=== PATIENT | male | born 1950 | race Caucasian/White ===

== ENCOUNTER 2018-10-31 08:21 | Day surgery (SDC) | payer OTHER ==
[~2018-10-31] VITALS: Ht 177.8 cm; Wt 92.1 kg
[~2018-10-31 08:21] MED LIST: ALEVE220 MG PO; ATEN25 PO; Advil200 M1 PO; ENOX40I SC; HYDCHL12.5 PO; HYDMOR2 PO; Humira20 MG/0.4; LOSA25 PO; MELO7.5 PO; METO50 PO; METTREX2.5 PO; Mobic15 MG PO; OMEP20ER PO; TAMS.4ER PO
--- NOTE | 2018-10-31 09:07 | NUR ---
PT ADMITTED TO [facility]. AGREES WITH PLANNED SURGERY. MEDS, ALLERGIES AND HX REVIEWED. LUNG SOUNDS CLEAR.
--- NOTE | 2018-10-31 11:13 | NUR ---
PT TO STEP/ DRESSING D/I. DENIES PAIN AT PRESENT.
--- NOTE | 2018-10-31 11:23 | NUR ---
REPORT TO MARCELO OJEDA RN.
--- NOTE | 2018-10-31 12:04 | NUR ---
Patient up to Ambulate independently. Gait steady. Discharge instructions reviewed with patient. Patient verbalizes understanding. Copy given to patient to take home. Dressing to procedure site clean, dry, intact with no visible drainage, swelling, erythema or bruising noted. Patient States Post-Procedure ride home has been arranged. Discharged via wheelchair to private car for ride home. Partner at bedside during discharge instructions and is providing ride home.
== END 2018-10-31 22:46 | disposition home or self-care (01) ==
LOC: ORSCMMR 08:21 → ORD 09:45 → ORSCMMR 09:45
PROVIDERS: Surgery
PROC: 0YU50JZ Supplement Right Inguinal Region with Synthetic Substitute, Open Approach (ICD-10-PCS; principal; 2018-10-31 09:45)
DX: K40.90 Unilateral inguinal hernia, without obstruction or gangrene, not specified as recurrent (principal); I10 Essential (primary) hypertension; Z87.891 Personal history of nicotine dependence; E78.5 Hyperlipidemia, unspecified; G47.33 Obstructive sleep apnea (adult) (pediatric); E88.81 Metabolic syndrome and other insulin resistance
CPT/HCPCS: C1781; J0690; J1100; J1885; J2370; J2405; J3010; J7120

== ENCOUNTER 2019-11-21 18:05 | Inpatient (IN) | payer OTHER ==
[~2019-11-21] VITALS: Ht 177.8 cm; Wt 88.9 kg
[2019-11-21 18:41] LABS: BASOPHILS ABSOLUTE AUTO 0.05 K/mm3 (0.00-0.23); BASOPHILS PERCENT AUTO 1 % (0-2); EOSINOPHILS ABSOLUTE AUTO 0.04 K/mm3 (0.00-0.68); EOSINOPHILS PERCENT AUTO 0 % (0-6); Hematocrit 37.6 % (37.0-53.0); Hemoglobin 12.2 g/dL (13.5-17.5); IMMATURE GRAN ABSOLUTE AUTO 0.03 K/mm3 (0.00-0.10); IMMATURE GRAN PERCENT AUTO 0 % (0-1); LYMPHOCYTES ABSOLUTE AUTO 1.16 K/mm3 (0.84-5.20); LYMPHOCYTES PERCENT AUTO 11 % (21-46); MONOCYTES PERCENT AUTO 10 % (4-13); Mean Corpuscular HGB Conc 32.4 g/dL (31.5-36.5); Mean Corpuscular Volume 93 fL (80-100); Mean Platelet Volume 9.6 fL (9.1-12.4); NEUTROPHILS ABSOLUTE AUTO 7.89 K/mm3 (1.96-9.15); NEUTROPHILS PERCENT AUTO 78 % (41-73); Platelet Count 337 K/mm3 (150-400); RDW Coefficient Variation 13.5 % (11.7-14.2); RDW Standard Deviation 45.9 fL (35.1-46.3); Red Blood Cell Count 4.06 M/mm3 (4.30-5.90); White Blood Cell Count 10.17 K/mm3 (4.00-11.30)
[2019-11-21 18:57] LABS: Prothrombin Time Results 10.7 Sec (9.7-11.5)
[2019-11-21 19:17] LABS: Magnesium, Blood 2.1 mg/dL (1.6-2.4)
[2019-11-21 19:31] LABS: Alanine Aminotransfer (ALT/SGP 32 U/L (12-78); Albumin, Blood 2.8 g/dL (3.4-5.0); Albumin/Globulin Ratio 0.6 (0.8-1.8); Alk Phos 66 U/L (50-136); Anion Gap 3 mmol/L (6-16); Aspartate Aminotrans (AST/SGOT 27 U/L (12-37); Bilirubin, Total 0.5 mg/dL (0.1-1.0); Blood Urea Nitrogen 10 mg/dL (8-24); Bun/Creatinine Ratio 12.3 (12.0-20.0); CO2, Blood 28 mmol/L (21-32); Calcium, Blood 9.3 mg/dL (8.5-10.1); Chloride, Blood 104 mmol/L (98-108); Creatinine, Blood 0.81 mg/dL (0.60-1.20); Globulin, Blood 4.6 g/dL (2.2-4.0); Glomerular Filtration Rate >60 (60-); Glucose, Blood 109 mg/dL (70-99); Potassium, Blood 3.9 mmol/L (3.5-5.5); Sodium, Blood 135 mmol/L (136-145); Total Protein, Blood 7.4 g/dL (6.4-8.2)
--- NOTE | 2019-11-21 23:33 | NUR ---
ASSUMED PT CARE FROM EXPENSE CLERK AT 2139 PT ALERT AND ORIENTED X4. ABLE TO MAKE HIS NEEDS KNOWN. DENIES ANY CHEST PAIN; HOWEVER, STILL C/O NO VISION TO LEFT MENDEZ BILATERALLY. BILATERAL EQUAL AGRICULTURE INSPECTOR TO BOTH UPPER AND LOWER EXTREMITIES. NO FACIAL DROOP OR SLURRED SPEECH NOTED. PT HAS TR BAND TO RIGHT RADIAL SITE S/P STENTING TO LAD. SITE IS SOFT, NON-TENDER WITH NO OOZING OR HEMATOMA NOTED; RIGHT RADIAL PULSE IS STRONG. VSS; SEE FLOW SHEET. DR. TAYLOR AT BEDSIDE AT 2229 TO DISCUSS WITH PT THE NEED FOR A CABG WITHIN THE NEXT 6 MONTHS IN WHICH HIS PROSTATE REMOVAL SURGERY WOULD MOST LIKELY BE POSTPONED. PT APPEARED DISCOURAGED BY THE NEWS AND MADE STATEMENTS LIKE, "IF ITS NOT ONE THING ITS ANOTHER." PT VERY UNDERSTANDING OF RISK VS BENEFIT REGARDING NEEDING THE CABG BEFORE THE PROSTATE REMOVAL; HOWEVER, HE STILL FEELS DEFEATED. PT CURRENTLY HAS NS INFUSING AT 200MLS/HR. PER DR. TAYLOR WE ARE TO DISCONTINUE THE HEPARIN GTT PT HAS BEEN CHANGED TO SUBCUTANEOUS INJECTIONS TID. CALL LIGHT WITHIN REACH; PT ABLE TO MAKE HIS NEEDS KNOWN. WILL CHECK ON FREQUENTLY D/T RECENT VISION CHANGES.
[2019-11-22 03:26] LABS: BASOPHILS ABSOLUTE AUTO 0.03 K/mm3 (0.00-0.23); BASOPHILS PERCENT AUTO 0 % (0-2); EOSINOPHILS ABSOLUTE AUTO 0.11 K/mm3 (0.00-0.68); EOSINOPHILS PERCENT AUTO 1 % (0-6); Hematocrit 35.2 % (37.0-53.0); Hemoglobin 11.5 g/dL (13.5-17.5); IMMATURE GRAN ABSOLUTE AUTO 0.03 K/mm3 (0.00-0.10); IMMATURE GRAN PERCENT AUTO 0 % (0-1); LYMPHOCYTES ABSOLUTE AUTO 1.28 K/mm3 (0.84-5.20); LYMPHOCYTES PERCENT AUTO 15 % (21-46); MONOCYTES ABSOLUTE AUTO 0.76 K/mm3 (0.16-1.47); MONOCYTES PERCENT AUTO 9 % (4-13); Mean Corpuscular HGB 30.1 pg (26.0-34.0); Mean Corpuscular HGB Conc 32.7 g/dL (31.5-36.5); Mean Corpuscular Volume 92 fL (80-100); Mean Platelet Volume 9.6 fL (9.1-12.4); NEUTROPHILS ABSOLUTE AUTO 6.35 K/mm3 (1.96-9.15); NEUTROPHILS PERCENT AUTO 74 % (41-73); Platelet Count 322 K/mm3 (150-400); RDW Coefficient Variation 13.5 % (11.7-14.2); RDW Standard Deviation 46.2 fL (35.1-46.3); Red Blood Cell Count 3.82 M/mm3 (4.30-5.90); White Blood Cell Count 8.56 K/mm3 (4.00-11.30)
[2019-11-22 03:49] LABS: Anion Gap 6 mmol/L (6-16); Blood Urea Nitrogen 9 mg/dL (8-24); Bun/Creatinine Ratio 10.6 (12.0-20.0); CO2, Blood 26 mmol/L (21-32); Calcium, Blood 8.4 mg/dL (8.5-10.1); Chloride, Blood 105 mmol/L (98-108); Creatinine, Blood 0.85 mg/dL (0.60-1.20); Glomerular Filtration Rate >60 (60-); Glucose, Blood 103 mg/dL (70-99); Potassium, Blood 3.6 mmol/L (3.5-5.5); Sodium, Blood 137 mmol/L (136-145)
--- NOTE | 2019-11-22 05:19 | NUR ---
END OF SHIFT SUMMARY NO SIGNIFICANT CHANGES SINCE LAST ENTRY. TR BAND REMOVED THIS MORNING AT 0500; SITE IS SOFT, NON-TENDER, 1CM HEMATOMA NOTED WITH SCANT AMOUNT OF OOZING. PT DENIES ANY DISCOMFORT. STATES HIS VISION REMAINS UNCHANGED; DEFICITS TO BILATERAL, LEFT VISUAL MENDEZ. DENIED CHEST PAIN. VSS; SEE FLOWSHEET. CALL LIGHT LEFT WITHIN REACH; HOWEVER, DUE TO VISUAL DEFICITS, FREQUENT MONITORING FOR ASSIST IS RECOMMENDED PT HAS A HARD TIME SEEING THE BUTTONS ON THE CALL LIGHT. WILL CONTINUE TO MONITOR UNTIL REPORT IS HANDED OFF TO ONCOMING RN.
--- NOTE | 2019-11-22 08:00 | NUR ---
Receieve report from Kory PAULINO. patient laying supine in bed with HOB slightly elevated and awake. He is able to communicate his needs. He states that his vision very limited to half his vision in each eye to center part with no peripheral aspect. His right TR band site with clear opsite dressing intact and minimal dried blood and no hematoma. He is on RA and sats mid to upper 90%'s. He MAEW. VSS See EMR.
--- NOTE | 2019-11-22 10:00 | NUR ---
Patient doing well, no significant changes in vision of TR Band site. He remains on RA and sats upper 90%. He has some concerns about open heart and his prostate surgery. When getting report from [facility] shift noticed he was in A-Fib RVR and will address with Cardiology. He denies any pain or needs. Tolerated med and breakfast.
--- NOTE | 2019-11-22 11:36 | NUR ---
Dr Holland by and is starting on Metoprolol for A-fib rate, Xarellto for A-Fib, and changed Birlinta to Plavix and 300mg loading dose, PPI Protonix 40 mg daily. No other significant changes. She discussed about taking him back to lab instructor in a month to look at vessels and possiibly another stent to delay open heart and he can to prostate surgery.
--- NOTE | 2019-11-22 14:43 | NUR ---
Dr Holland transferred patient to PCU status and is awaiting room. He has had many friends in and they state he has alot of support at home. VSS see EMR. No neuro or visual changes and patient states he will say something is better or worse. Groin site remains stable.
--- NOTE | 2019-11-22 17:30 | NUR ---
Patient sleeping and has been for several hours, friends and family have left for the day. He remains on RA and sats mid 90%'s. He denies vision better or worse from start of shift. His R TR band site C/D/I. Dr Pruitt's office called with appt. VSS See EMR. MAEW but weak.
--- NOTE | 2019-11-23 03:17 | NUR ---
SHIFT SUMMARY: PATIENT SBP RANGING BETWEEN 80'S AND 90'S AFTER NIGHT MEDICATIONS GIVEN PER MD ORDER. MAP STILL 66 AND ABOVE. THE SBP READINGS IN THE 70'S WERE D/T LOOSENED CUFF AND PATIENT POSITIONING ON HIS SIDE. PATIENT CALM AND COOPERATIVE ALL SHIFT, NEURO REMAINS UNCHANGED FROM BEGINNING OF SHIFT. ALL OTHER VSS, CALL LIGHT WITHIN REACH, BED LOW AND LOCKED, MONITORING CLOSELY.
--- NOTE | 2019-11-23 08:00 | NUR ---
SHORTLY AFTER START OF SHIFT, PT REPORTED 4/10 MID STERNAL CHEST PAIN. PT WAS FOUND TO BE CLAMMY, O2 SATS 88 ON ROOM AIR, AND APPEARING UNCOMFORTABLE. PLACED ON 2L NC AND O2 SATS IMPROVED TO MID TO HIGH 90'S. DR QUIROZ NOTIFIED AND ORDERS OBTAINED FOR NITRO SL, CHEST XR, EKG. PT'S SBP WAS LOW 100'S PRIOR TO NITRO ADMINISTRATION. DR WAS AWARE OF PT'S LOWER BP'S DURING THE NIGHT PRIOR TO ADMINISTRATION. AFTER NITRO, PT REPORTED IMPROVEMENT IN CP TO 2/10 STILL MIDSTERNAL. SBP DROPPED TO 79, HOWEVER PT'S BP DID RECOVER. PT IS CURRENTLY APPEARING MORE COMFORTABLE. VITALS ARE STABLE, AWAITING DR QUIROZ'S ARRIVAL.
[2019-11-23 08:13] LABS: Troponin I 8.01 ng/mL (0.000-0.040)
[2019-11-23 14:11] LABS: Troponin I 7.06 ng/mL (0.000-0.040)
--- NOTE | 2019-11-23 16:56 | NUR ---
PATIENT GAVE CASH ROOM CLERK PERMISSION TO PROVIDE CARE ON 11/23/2019.
--- NOTE | 2019-11-23 18:34 | NUR ---
SHIFT SUMMARY AFTER THIS MORNINGS EPISODE OF CP, PT HAS REMAINED CHEST PAIN FREE. PT REMAINS IN A-FIB ON THE MONITOR WITH RATES 70'S-100'S. HEPARIN GTT STARTED THIS AFTERNOON PER DR'S ORDER. FIRST PTT ON NOC SHIFT. PT HAS HAD SOFT BP'S OFF AND ON DURING THE DAY WITH SYSTLIC LOWS IN THE 90'S. METROPROLOL DOSING REDUCED BY DR. FIRST DOSE STARTS TONIGHT. ALL OTHER VITALS HAVE REMAINED STABLE. PT WAS ABLE TO BE REMOVED OFF OF OXYGEN EARLY THIS AFTERNOON. PT IS ALERT AND ORIENTED, FOLLOWS COMMANDS. PT STILL REPORTS BILATERAL LEFT VISION LOSS.
--- NOTE | 2019-11-23 19:32 | NUR ---
STUDENT NURSE WAS WITH THIS RN IN THE AFTERNOON. REVIEWED CHARTING AND I AGREE WITH STUDENTS ASSESSMENTS.
--- NOTE | 2019-11-23 20:00 | NUR ---
ASSUMED CARE OF PT AT 1915. REPORT RECEIVED FROM PRIMARY AND STUDENT NURSE AT BEDSIDE. PROVIDED OPPORTUNITY FOR PT PARTICIPATION AND QUESTIONS. PT PRESENTS IN BED. ALERT AND ORIENTED. PLEASANT AND COOPERATIVE WITH CARE AND ASSESSMENT. DENIES CHEST PAIN OR PRESSURE AT THIS TIME. WILL REVIEW CHART AND PLAN OF CARE FOR THIS PT.
[2019-11-23 22:38] LABS: Troponin I 5.99 ng/mL (0.000-0.040)
--- NOTE | 2019-11-24 00:52 | NUR ---
PT CONTINUES WITH NO COMPLAINTS OF CHEST PAIN OR PRESSURE. MOVES HIMSELF ABOUT IN BED. NO HEMATOMA OR BLEEDING AT RIGHT RADIAL SITE. OF NOTE TROPONINS ARE TRENDING DOWNWARDS. IN EVENING TIME, DR JACOBS CALLS TO CHECK ON PT. UPDATE GIVEN. WILL CONTINUE TO MONITOR PT.
--- NOTE | 2019-11-24 06:37 | NUR ---
PT HAS NO COMPLAINTS OF CHEST PAIN OR PRESSURE THROUGHOUT THE NIGHT. CONTINUES IN A FIB WITH BLOOD PRESSURES WITH MAP MAINTAINING > 60. PT MOVES ABOUT BED ON HIS OWN. VOIDS Q.S. WILL CONTINUE TO MONITOR PT, AND WILL REPORT OFF TO ONCOMING RN.
--- NOTE | 2019-11-24 12:38 | NUR ---
1200- DR. VERA AT BEDSIDE. GAVE VERBAL ORDER TO CAHNGE PT TO PCU STATUS. KEEP HEPARIN GTT FOR 1 MORE DAY, THEN WILL CONVERT TO PO ANTICOAGULATION.
--- NOTE | 2019-11-24 13:35 | NUR ---
PATIENT TRANSFERRED TO PCU ROOM 6 BAT 1322 VIA W/C, TRANSPORTED BY LISBETH HOYT. PT HAS ALL BELONGINGS.
--- NOTE | 2019-11-24 13:44 | NUR ---
ASSUMED PT CARE FROM ICU. PT ALERT, ASNWERING QUESTIONS IN FULL SENTENCES. PT DENIES ANY PAIN OR DISCOMFORT, PT DRINKING COFFEE THAT HAD BEEN BROUGHT IN TO HIM
--- NOTE | 2019-11-24 19:15 | NUR ---
BEDSIDE REPORT REC'D FROM JAI PAULINO. PT LYING IN BED, JUST FINISHED TALKING ON PHONE. PLEASANT AND COOPERATIVE. DENIES CP T/O THE DAY. REPORTS HIS ONLY REMAINING DEFICIT FROM STROKE IS BLURRED VISION. TV IS OFF, ROOM IS DIM. VSS, ASSESSMENT NOTED. DENIES ANY NEEDS AT THIS TIME. ENCOURAGED TO CALL FOR ASSIST GETTING UP. CHANGE IN HEP GTT RATE, VERIFIED AT BEDSIDE WITH JAI AND DOCUMENTED IN EMAR. CALL LIGHT IN REACH.
[2019-11-25 04:45] LABS: BASOPHILS ABSOLUTE AUTO 0.06 K/mm3 (0.00-0.23); BASOPHILS PERCENT AUTO 1 % (0-2); EOSINOPHILS ABSOLUTE AUTO 0.33 K/mm3 (0.00-0.68); EOSINOPHILS PERCENT AUTO 4 % (0-6); Hematocrit 38.8 % (37.0-53.0); Hemoglobin 12.8 g/dL (13.5-17.5); IMMATURE GRAN ABSOLUTE AUTO 0.03 K/mm3 (0.00-0.10); IMMATURE GRAN PERCENT AUTO 0 % (0-1); LYMPHOCYTES ABSOLUTE AUTO 1.58 K/mm3 (0.84-5.20); LYMPHOCYTES PERCENT AUTO 21 % (21-46); MONOCYTES ABSOLUTE AUTO 0.64 K/mm3 (0.16-1.47); MONOCYTES PERCENT AUTO 8 % (4-13); Mean Corpuscular HGB 29.8 pg (26.0-34.0); Mean Corpuscular Volume 90 fL (80-100); Mean Platelet Volume 9.9 fL (9.1-12.4); NEUTROPHILS ABSOLUTE AUTO 4.96 K/mm3 (1.96-9.15); NEUTROPHILS PERCENT AUTO 65 % (41-73); Platelet Count 477 K/mm3 (150-400); RDW Coefficient Variation 13.1 % (11.7-14.2); RDW Standard Deviation 43.1 fL (35.1-46.3); Red Blood Cell Count 4.29 M/mm3 (4.30-5.90)
[2019-11-25 05:02] LABS: Anion Gap 6 mmol/L (6-16); Blood Urea Nitrogen 13 mg/dL (8-24); Bun/Creatinine Ratio 15.3 (12.0-20.0); CO2, Blood 27 mmol/L (21-32); Calcium, Blood 8.7 mg/dL (8.5-10.1); Chloride, Blood 106 mmol/L (98-108); Creatinine, Blood 0.85 mg/dL (0.60-1.20); Glomerular Filtration Rate >60 (60-); Glucose, Blood 105 mg/dL (70-99); Sodium, Blood 139 mmol/L (136-145)
--- NOTE | 2019-11-25 06:26 | NUR ---
SHIFT SUMMARY NO SIG CHANGES THIS SHIFT. PT REPORTS HAVING THE BEST SLEEP HES HAD SO FAR BEING IN THE HOSPITAL. VSS. USES URINAL IN BED RATHER THAN USING CALL LIGHT TO CALL FOR ASSISTANCE. STILL REPORTS VISUAL DISTURBANCES BUT ALSO STATES HOW THANKFUL HE IS THAT IT'S NOT WORSE THAN IT IS. LIGHTS OFF, MUSIC CHANNEL ON TV. WILL CONT TO MONITOR, DOCUMENT ANY CHANGES AND WILL REPORT TO DAY SHIFT RN. CALL LIGHT IN REACH.
--- NOTE | 2019-11-25 18:28 | NUR ---
SHIFT SUMMARY PATIENT DENIES PAIN, NAUSEA, AND SHORTNESS OF BREATH. PATIENT UP SBA IN ROOM. UP IN CHAIR FOR MEALS. HEPARIN DRIP DISCONTINUED, PO ANTICOAGULANTS STARTED. CALL LIGHT IN REACH.
--- NOTE | 2019-11-25 20:53 | NUR ---
ASSUMED CARE OF PATIENT AT APPROXIMATELY 1905 FROM ARINA Jain RN. PATIENT ALERT AND ORIENTED X4; SOME WEAKNESS; CALLS BEFORE AMBULATION PER REPORT; LEFT VISUAL FIELD NEGLECT. PATIENT DENIES CP/PRESSURE, PAIN ELSEHERE, NUMBNESS, TINGLING, DIZZINESS OR NAUSEA. PATIENT REPORTS HE NEEDS TO HAVE PROSTATE SURGERY BUT MAY NEED CABG OR ANOTHER STENT FIRST. HEPARIN GTT STOPPED TODAY. PIV S/L. OLD RIGHT RADIAL SITE WNL. PATIENT CURRENTLY RESTING IN BED; CALL LIGHT IN REACH; BED IN LOWEST POSISTION; BED ALARM ON; WILL CONTINUE TO MONITOR AND ASSESS UNTIL END OF SHIFT.
--- NOTE | 2019-11-26 06:19 | NUR ---
NO ACUTE CHANGES TO REPORT. PATIENT SLEPT ABOUT NINE HOURS LAST NIGHT. PATIENT'S ONLY COMPLAINT WAS HIS BACK ITCHED. WILL CONTINUE TO MONITOR AND ASSESS UNTIL END OF SHIFT.
[2019-11-26] MEDS ORDERED: ACET325 PO (10:28)
[2019-11-26] MEDS ORDERED: ASPI81CH PO (10:29)
[2019-11-26] MEDS ORDERED: CLOP75 PO (10:30)
[2019-11-26] MEDS ORDERED: ATOR40TA PO (10:30)
[2019-11-26] MEDS ORDERED: METO25ER PO (10:32)
[2019-11-26] MEDS ORDERED: LOSA25 PO (10:32)
[2019-11-26] MEDS ORDERED: PANT40 PO (10:32)
[2019-11-26] MEDS ORDERED: XARELTO20 MG PO (10:34)
[2019-11-26] MEDS ORDERED: NITR.4SL SL (10:42)
--- NOTE | 2019-11-26 12:02 | NUR ---
DISCHARGE DISCAHRGE MEDICATIONS AND INSTRUCTIONS EXPLAINED TO PATIENT. PATIENT STATED UNDERSTANDING. PATIENT TO CALL TOMORROW TO FOLLOW UP WITH PCP AND DEVELOPER ADVISOR. RADIAL SITE INSTRUCTION GIVEN. IV REMOVED WITHOUT DIFFICULTY. BELONGINGS WITH PATIENT. PATIENT TRANSFERED TO PRIVATE VEHICLE VIA WHEELCHAIR.
== END 2019-11-26 11:20 | disposition home or self-care (01) | DRG 246 ==
LOC: ER 18:05 → ICUW 20:33 → PCU 11-24 13:33
PROVIDERS: Emergency Medicine; Internal Medicine Interventional Cardiology; ADMIT Internal Medicine Interventional Cardiology
PROC: 4A023N7 Measurement of Cardiac Sampling and Pressure, Left Heart, Percutaneous Approach (ICD-10-PCS; principal; 2019-11-21)
PROC: 027034Z Dilation of Coronary Artery, One Artery with Drug-eluting Intraluminal Device, Percutaneous Approach (ICD-10-PCS; 2019-11-21)
PROC: B2111ZZ Fluoroscopy of Multiple Coronary Arteries using Low Osmolar Contrast (ICD-10-PCS; 2019-11-21)
PROC: 6A750Z7 Ultrasound Therapy of Other Vessels, Single (ICD-10-PCS; 2019-11-21)
DX: I21.3 ST elevation (STEMI) myocardial infarction of unspecified site (principal); I63.432 Cerebral infarction due to embolism of left posterior cerebral artery; H53.8 Other visual disturbances; D64.9 Anemia, unspecified; C61 Malignant neoplasm of prostate; I48.91 Unspecified atrial fibrillation
CPT/HCPCS: 36415; 70450; 70496; 70498; 71045; 76937; 80048; 80053; 82550; 83735; 84484; 85025; 85347; 85610; 85730; 92978; 93005; 93010; 93306; 93454; 93571; 96374-59; 96375-59; 99152; 99153; 99285-25; A9270; A9270-GY; C1725; C1753; C1769; C1874; C1887; C1894; C8929; C9600; C9606; J1644; J2250; J3010; J7030; J7050; Q9957; Q9967

== ENCOUNTER → 2019-11-21 | Outpatient (CLI) | payer OTHER ==
[2019-11-21 17:55] LABS: BASOPHILS ABSOLUTE AUTO 0.03 K/mm3 (0.00-0.23); BASOPHILS PERCENT AUTO 0 % (0-2); EOSINOPHILS ABSOLUTE AUTO 0.05 K/mm3 (0.00-0.68); EOSINOPHILS PERCENT AUTO 1 % (0-6); Hematocrit 37.7 % (37.0-53.0); Hemoglobin 12.5 g/dL (13.5-17.5); IMMATURE GRAN ABSOLUTE AUTO 0.03 K/mm3 (0.00-0.10); IMMATURE GRAN PERCENT AUTO 0 % (0-1); LYMPHOCYTES ABSOLUTE AUTO 1.26 K/mm3 (0.84-5.20); LYMPHOCYTES PERCENT AUTO 12 % (21-46); MONOCYTES ABSOLUTE AUTO 0.87 K/mm3 (0.16-1.47); MONOCYTES PERCENT AUTO 8 % (4-13); Mean Corpuscular HGB Conc 33.2 g/dL (31.5-36.5); Mean Corpuscular Volume 91 fL (80-100); Mean Platelet Volume 9.7 fL (9.1-12.4); NEUTROPHILS ABSOLUTE AUTO 8.57 K/mm3 (1.96-9.15); NEUTROPHILS PERCENT AUTO 79 % (41-73); Platelet Count 364 K/mm3 (150-400); RDW Coefficient Variation 13.6 % (11.7-14.2); RDW Standard Deviation 45.3 fL (35.1-46.3); Red Blood Cell Count 4.16 M/mm3 (4.30-5.90); White Blood Cell Count 10.81 K/mm3 (4.00-11.30)
[2019-11-21 18:21] LABS: Alanine Aminotransfer (ALT/SGP 35 U/L (12-78); Albumin, Blood 2.8 g/dL (3.4-5.0); Albumin/Globulin Ratio 0.5 (0.8-1.8); Alk Phos 74 U/L (40-126); Anion Gap 9 mmol/L (6-16); Aspartate Aminotrans (AST/SGOT 32 U/L (12-37); Bilirubin, Total 0.5 mg/dL (0.1-1.0); Blood Urea Nitrogen 9 mg/dL (8-24); Bun/Creatinine Ratio 8.7 (12.0-20.0); CO2, Blood 27 mmol/L (21-32); Chloride, Blood 101 mmol/L (98-108); Creatinine, Blood 1.04 mg/dL (0.60-1.20); Globulin, Blood 5.2 g/dL (2.2-4.0); Glomerular Filtration Rate >60 (60-); Glucose, Blood 113 mg/dL (70-99); Sodium, Blood 137 mmol/L (136-145)
[2019-11-21 18:22] LABS: Troponin I 4.523 ng/mL (0.000-0.040)
== END ==
LOC: LAB SHORT 17:51 → LAB EV 17:51
PROVIDERS: Emergency Medicine
DX: R07.9 Chest pain, unspecified (principal)
CPT/HCPCS: 80053; 84484; 85025

== ENCOUNTER 2020-02-28 18:36 | Emergency (ER) | payer OTHER ==
[~2020-02-28] VITALS: Ht 177.8 cm; Wt 97.5 kg
[~2020-02-28 18:36] MED LIST changes: +ACET325 PO; +ASPI81CH PO; +ATOR40TA PO; +CLOP75 PO; +METO25ER PO; +NITR.4SL SL; +PANT40 PO; +XARELTO20 MG PO
[2020-02-28 19:06] LABS: BASOPHILS ABSOLUTE AUTO 0.03 K/mm3 (0.00-0.23); BASOPHILS PERCENT AUTO 0 % (0-2); EOSINOPHILS ABSOLUTE AUTO 0.05 K/mm3 (0.00-0.68); EOSINOPHILS PERCENT AUTO 1 % (0-6); Hematocrit 39.2 % (37.0-53.0); Hemoglobin 12.6 g/dL (13.5-17.5); IMMATURE GRAN ABSOLUTE AUTO 0.02 K/mm3 (0.00-0.10); IMMATURE GRAN PERCENT AUTO 0 % (0-1); LYMPHOCYTES ABSOLUTE AUTO 0.96 K/mm3 (0.84-5.20); LYMPHOCYTES PERCENT AUTO 14 % (21-46); MONOCYTES ABSOLUTE AUTO 0.47 K/mm3 (0.16-1.47); MONOCYTES PERCENT AUTO 7 % (4-13); Mean Corpuscular HGB 28.2 pg (26.0-34.0); Mean Corpuscular HGB Conc 32.1 g/dL (31.5-36.5); Mean Corpuscular Volume 88 fL (80-100); Mean Platelet Volume 9.4 fL (9.1-12.4); NEUTROPHILS ABSOLUTE AUTO 5.32 K/mm3 (1.96-9.15); NEUTROPHILS PERCENT AUTO 78 % (41-73); Platelet Count 363 K/mm3 (150-400); RDW Coefficient Variation 13.7 % (11.7-14.2); RDW Standard Deviation 43.5 fL (35.1-46.3); Red Blood Cell Count 4.47 M/mm3 (4.30-5.90); White Blood Cell Count 6.85 K/mm3 (4.00-11.30)
[2020-02-28 19:32] LABS: Alanine Aminotransfer (ALT/SGP 184 U/L (12-78); Albumin, Blood 3.1 g/dL (3.4-5.0); Albumin/Globulin Ratio 0.6 (0.8-1.8); Alk Phos 179 U/L (50-136); Anion Gap 5 mmol/L (6-16); Aspartate Aminotrans (AST/SGOT 231 U/L (12-37); Bilirubin, Total 1.5 mg/dL (0.1-1.0); Blood Urea Nitrogen 10 mg/dL (8-24); Bun/Creatinine Ratio 10.8 (12.0-20.0); CO2, Blood 25 mmol/L (21-32); Calcium, Blood 9.2 mg/dL (8.5-10.1); Chloride, Blood 106 mmol/L (98-108); Creatinine, Blood 0.93 mg/dL (0.60-1.20); Globulin, Blood 4.8 g/dL (2.2-4.0); Glomerular Filtration Rate >60 (60-); Glucose, Blood 135 mg/dL (70-99); Potassium, Blood 4.6 mmol/L (3.5-5.5); Sodium, Blood 136 mmol/L (136-145); Total Protein, Blood 7.9 g/dL (6.4-8.2); Troponin I <0.015 ng/mL (0.000-0.040)
[2020-02-28 20:09] LABS: Ethanol (Alcohol), Blood, Med <3 mg/dL
[2020-02-28 20:10] LABS: Acetaminophen, Random <2.0 ug/mL (10.0-30.0)
[2020-02-28] MEDS ORDERED: Roxicodone5 MG PO (22:07)
[2020-02-28] MEDS ORDERED: ONDA4ODT MM (22:07)
== END 2020-02-28 22:20 | disposition home or self-care (01) ==
LOC: ER 18:36
PROVIDERS: Physician Assistant
DX: K80.20 Calculus of gallbladder without cholecystitis without obstruction (principal); Z88.8 Allergy status to other drugs, medicaments and biological substances; Z79.82 Long term (current) use of aspirin; Z79.899 Other long term (current) drug therapy; M06.9 Rheumatoid arthritis, unspecified; I10 Essential (primary) hypertension; I48.91 Unspecified atrial fibrillation; Z85.46 Personal history of malignant neoplasm of prostate
CPT/HCPCS: 36415; 71045; 76705; 80053; 83690; 83880; 84484; 85025; 93005; 93010; 96374; 96375; 99285-25; A9270; A9270-GY; G0480; J2405; J3010

== ENCOUNTER → 2022-07-14 | Outpatient (CLI) | payer OTHER ==
[~2022-07-14] MED LIST changes: +ONDA4ODT MM; +Roxicodone5 MG PO
== END ==
LOC: LAB 14:57 → LAB SHORT 14:57
DX: L98.9 Disorder of the skin and subcutaneous tissue, unspecified (principal); R23.4 Changes in skin texture
CPT/HCPCS: 88305

== ENCOUNTER 2023-06-17 10:01 | Emergency (ER) | payer OTHER ==
[~2023-06-17] VITALS: Ht 180.3 cm; Wt 104.3 kg
[2023-06-17 10:38] VITALS: BP 126/79
[2023-06-17 11:02] LABS: BASOPHILS ABSOLUTE AUTO 0.08 K/mm3 (0.00-0.23); BASOPHILS PERCENT AUTO 1 % (0-2); EOSINOPHILS ABSOLUTE AUTO 0.09 K/mm3 (0.00-0.68); EOSINOPHILS PERCENT AUTO 1 % (0-6); Hematocrit 28.3 % (37.0-53.0); Hemoglobin 7.3 g/dL (13.5-17.5); IMMATURE GRAN ABSOLUTE AUTO 0.02 K/mm3 (0.00-0.10); IMMATURE GRAN PERCENT AUTO 0 % (0-1); LYMPHOCYTES ABSOLUTE AUTO 0.52 K/mm3 (0.84-5.20); LYMPHOCYTES PERCENT AUTO 8 % (21-46); MONOCYTES ABSOLUTE AUTO 0.69 K/mm3 (0.16-1.47); MONOCYTES PERCENT AUTO 11 % (4-13); Mean Corpuscular HGB 16.7 pg (26.0-34.0); Mean Corpuscular HGB Conc 25.8 g/dL (31.5-36.5); Mean Corpuscular Volume 65 fL (80-100); Mean Platelet Volume 9.3 fL (9.1-12.4); NEUTROPHILS ABSOLUTE AUTO 5.14 K/mm3 (1.96-9.15); NEUTROPHILS PERCENT AUTO 79 % (41-73); NRBC ABSOLUTE 0.02 K/mm3 (0.00-0.02); NRBC Auto 0.3 /100 WBC (0.0-0.2); Platelet Count 404 K/mm3 (150-400); RDW Coefficient Variation 23.2 % (11.7-14.2); RDW Standard Deviation 53.1 fL (35.1-46.3); Red Blood Cell Count 4.36 M/mm3 (4.30-5.90); White Blood Cell Count 6.54 K/mm3 (4.00-11.30)
[2023-06-17 11:19] LABS: Albumin, Blood 3.8 g/dL (3.4-5.0); Albumin/Globulin Ratio 0.9 (0.8-1.8); Bilirubin, Total 0.8 mg/dL (0.1-1.0); Bun/Creatinine Ratio 10.6 (12.0-20.0); Calcium, Blood 8.9 mg/dL (8.5-10.1); Creatinine, Blood 1.04 mg/dL (0.60-1.20); Globulin, Blood 4.1 g/dL (2.2-4.0); Percent Saturation 2.5 % (20.0-50.0); Potassium, Blood 3.6 mmol/L (3.5-5.5); Total Protein, Blood 7.9 g/dL (6.4-8.2)
== END 2023-06-17 13:21 | disposition home or self-care (01) ==
LOC: ER 10:01
PROVIDERS: Physician Assistant
DX: D64.9 Anemia, unspecified (principal); Z87.891 Personal history of nicotine dependence; I10 Essential (primary) hypertension; M06.9 Rheumatoid arthritis, unspecified; Z88.8 Allergy status to other drugs, medicaments and biological substances; Z79.899 Other long term (current) drug therapy; Z79.82 Long term (current) use of aspirin
CPT/HCPCS: 80053; 82728; 83540; 83550; 85025; 86850; 86900; 86901; 99283